=== PATIENT | female | born 1970 | race Caucasian/White ===

== ENCOUNTER → 2017-07-08 | Outpatient (CLI) | payer OTHER ==
[~2017-07-08] MED LIST: BUSP10 PO; HYDPAM25 PO
[2017-07-08 11:57] LABS: BASOPHILS ABSOLUTE AUTO 0.05 K/mm3 (0.00-0.23); BASOPHILS PERCENT AUTO 1 % (0-2); EOSINOPHILS ABSOLUTE AUTO 0.07 K/mm3 (0.00-0.68); EOSINOPHILS PERCENT AUTO 1 % (0-6); Hematocrit 44.3 % (33.0-51.0); Hemoglobin 14.8 g/dL (11.5-16.0); IMMATURE GRAN ABSOLUTE AUTO 0.02 K/mm3 (0.00-0.10); IMMATURE GRAN PERCENT AUTO 0 % (0-1); LYMPHOCYTES ABSOLUTE AUTO 1.49 K/mm3 (0.84-5.20); LYMPHOCYTES PERCENT AUTO 27 % (21-46); MONOCYTES ABSOLUTE AUTO 0.29 K/mm3 (0.16-1.47); MONOCYTES PERCENT AUTO 5 % (4-13); Mean Corpuscular HGB 28.6 pg (26.0-34.0); Mean Corpuscular HGB Conc 33.4 g/dL (31.5-36.5); Mean Corpuscular Volume 86 fL (80-100); Mean Platelet Volume 9.3 fL (9.1-12.4); NEUTROPHILS ABSOLUTE AUTO 3.67 K/mm3 (1.96-9.15); NEUTROPHILS PERCENT AUTO 66 % (41-73); Platelet Count 305 K/mm3 (150-400); RDW Coefficient Variation 13.5 % (11.7-14.2); RDW Standard Deviation 42.4 fL (35.1-46.3); Red Blood Cell Count 5.17 M/mm3 (3.80-5.20); White Blood Cell Count 5.59 K/mm3 (4.00-11.30)
[2017-07-08 12:08] LABS: Alanine Aminotransfer (ALT/SGP 25 U/L (12-78); Albumin/Globulin Ratio 1.3 (0.8-1.8); Alk Phos 88 U/L (40-126); Anion Gap 10 mmol/L (6-16); Aspartate Aminotrans (AST/SGOT 24 U/L (12-37); Bilirubin, Total 0.4 mg/dL (0.1-1.0); Blood Urea Nitrogen 9 mg/dL (8-24); Bun/Creatinine Ratio 11.8 (12.0-20.0); CO2, Blood 28 mmol/L (21-32); Chloride, Blood 104 mmol/L (98-108); Creatinine, Blood 0.76 mg/dL (0.40-1.00); Globulin, Blood 3.2 g/dL (2.2-4.0); Glomerular Filtration Rate >60 (60-); Glucose, Blood 97 mg/dL (70-99); Potassium, Blood 4.6 mmol/L (3.5-5.5); Sodium, Blood 142 mmol/L (136-145); Total Protein, Blood 7.2 g/dL (6.4-8.2); Uric Acid, Blood 5.1 mg/dL (2.6-6.0)
[2017-07-09 10:44] LABS: Antinuclear Antibody Screen Negative (Negative)
[2017-07-09 14:00] LABS: Rheumatoid Factor, Serum Negative (Negative)
== END | disposition home or self-care (01) ==
LOC: LAB SHORT 11:39 → LAB EV 11:39
PROVIDERS: General Practice
DX: M79.602 Pain in left arm (principal)
CPT/HCPCS: 80053; 84550; 85025; 85651; 86038; 86140; 86430

== ENCOUNTER → 2018-11-16 | Outpatient (CLI) | payer BC ==
[~2018-11-16] MED LIST changes: +IBUP800 PO; +Klonopin0.5 MG PO
== END | disposition home or self-care (01) ==
LOC: LAB 17:37 → LAB SHORT 17:37
DX: J02.9 Acute pharyngitis, unspecified (principal)
CPT/HCPCS: 87081

== ENCOUNTER 2018-12-29 05:09 | Emergency (ER) | payer BC ==
[~2018-12-29] VITALS: Ht 160 cm; Wt 72.6 kg
[~2018-12-29 05:09] MED LIST changes: -IBUP800 PO; -Klonopin0.5 MG PO
[2018-12-29] MEDS ORDERED: Klonopin0.5 MG PO (05:24)
[2018-12-29] MEDS ORDERED: IBUP800 PO (06:50)
== END 2018-12-29 07:11 | disposition home or self-care (01) ==
LOC: ER 05:09
DX: S29.011A Strain of muscle and tendon of front wall of thorax, initial encounter (principal); F41.9 Anxiety disorder, unspecified; Z87.891 Personal history of nicotine dependence; Z88.2 Allergy status to sulfonamides; Z88.1 Allergy status to other antibiotic agents; Z79.899 Other long term (current) drug therapy; X50.0XXA Overexertion from strenuous movement or load, initial encounter; Y93.B2 Activity, push-ups, pull-ups, sit-ups; Y92.39 Other specified sports and athletic area as the place of occurrence of the external cause
CPT/HCPCS: 71046; 99283-25

== ENCOUNTER 2019-03-05 20:54 | Emergency (ER) | payer BC ==
[~2019-03-05] VITALS: Ht 160 cm; Wt 74.8 kg
[~2019-03-05 20:54] MED LIST changes: +IBUP800 PO; +Klonopin0.5 MG PO
[2019-03-05] MEDS ORDERED: Augmentin 875-1 EACH PO (23:56)
== END 2019-03-06 00:42 | disposition home or self-care (01) ==
LOC: ER 20:54
DX: S21.052A Open bite of left breast, initial encounter (principal); S81.852A Open bite, left lower leg, initial encounter; F41.9 Anxiety disorder, unspecified; Z23 Encounter for immunization; Z79.899 Other long term (current) drug therapy; W54.0XXA Bitten by dog, initial encounter
CPT/HCPCS: 12002; 76604; 90471; 90714; 96374-59; 99284-25; A9270; J1170

== ENCOUNTER 2019-03-09 05:28 | Emergency (ER) | payer BC ==
[~2019-03-09] VITALS: Ht 160 cm; Wt 76.2 kg
[~2019-03-09 05:28] MED LIST changes: +Augmentin 875-1 EACH PO
[2019-03-09] MEDS ORDERED: HYDR1TAB94 PO (05:44)
== END 2019-03-09 06:45 | disposition home or self-care (01) ==
LOC: ER 05:28
DX: S81.852D Open bite, left lower leg, subsequent encounter (principal); F41.9 Anxiety disorder, unspecified; Z88.2 Allergy status to sulfonamides; Z88.8 Allergy status to other drugs, medicaments and biological substances; Z87.891 Personal history of nicotine dependence
CPT/HCPCS: 73590; 99283-25

== ENCOUNTER 2019-04-06 07:42 | Emergency (ER) | payer BC ==
[~2019-04-06] VITALS: Ht 160 cm; Wt 76.2 kg
[~2019-04-06 07:42] MED LIST changes: +HYDR1TAB94 PO
== END 2019-04-06 09:24 | disposition home or self-care (01) ==
LOC: ER 07:42
DX: M79.89 Other specified soft tissue disorders (principal); F41.9 Anxiety disorder, unspecified; Z88.2 Allergy status to sulfonamides; Z88.1 Allergy status to other antibiotic agents; Z87.891 Personal history of nicotine dependence
CPT/HCPCS: 93971; 99283-25

== ENCOUNTER → 2019-04-15 | Outpatient (CLI) | payer BC | END | disposition home or self-care (01) | LOC: LAB 17:36 → LAB SHORT 17:36 | DX: L03.90 Cellulitis, unspecified (principal) | CPT/HCPCS: 87070; 87075; 87076; 87077; 87186; 87205 ==

== ENCOUNTER 2019-04-27 00:15 | Day surgery (SDC) | payer BC | END 2019-04-27 23:35 | disposition home or self-care (01) | LOC: WOUND 00:15 | DX: L97.822 Non-pressure chronic ulcer of other part of left lower leg with fat layer exposed (principal); S81.852D Open bite, left lower leg, subsequent encounter; S20.02XS Contusion of left breast, sequela; Z88.2 Allergy status to sulfonamides; Z88.1 Allergy status to other antibiotic agents; Z87.891 Personal history of nicotine dependence | CPT/HCPCS: G0463 ==

== ENCOUNTER 2019-05-04 00:09 | Day surgery (SDC) | payer BC | END 2019-05-04 23:02 | disposition home or self-care (01) | LOC: WOUND 00:09 | DX: L97.822 Non-pressure chronic ulcer of other part of left lower leg with fat layer exposed (principal); S81.852D Open bite, left lower leg, subsequent encounter; S20.02XS Contusion of left breast, sequela; F41.0 Panic disorder [episodic paroxysmal anxiety]; F41.1 Generalized anxiety disorder; F43.10 Post-traumatic stress disorder, unspecified; W54.0XXD Bitten by dog, subsequent encounter; Z79.899 Other long term (current) drug therapy ==

== ENCOUNTER 2019-05-12 01:30 | Day surgery (SDC) | payer BC | END 2019-05-12 23:22 | disposition home or self-care (01) | LOC: WOUND 01:30 | DX: L97.822 Non-pressure chronic ulcer of other part of left lower leg with fat layer exposed (principal); S81.852D Open bite, left lower leg, subsequent encounter ==

== ENCOUNTER 2019-05-19 02:52 | Day surgery (SDC) | payer BC | END 2019-05-19 23:09 | disposition home or self-care (01) | LOC: WOUND 02:52 | DX: L97.822 Non-pressure chronic ulcer of other part of left lower leg with fat layer exposed (principal); S81.852D Open bite, left lower leg, subsequent encounter; F43.10 Post-traumatic stress disorder, unspecified; F41.0 Panic disorder [episodic paroxysmal anxiety]; W54.0XXD Bitten by dog, subsequent encounter ==

== ENCOUNTER → 2019-10-27 | Outpatient (CLI) | payer BC | LOC: LAB 07:30 → LAB SHORT 07:30 | DX: J02.9 Acute pharyngitis, unspecified (principal) | CPT/HCPCS: 87081 ==

== ENCOUNTER 2019-11-17 16:57 | Inpatient (IN) | payer BC ==
[~2019-11-17] VITALS: Ht 160 cm; Wt 80.7 kg
[2019-11-17 18:17] LABS: BASOPHILS ABSOLUTE AUTO 0.03 K/mm3 (0.00-0.23); BASOPHILS PERCENT AUTO 0 % (0-2); EOSINOPHILS ABSOLUTE AUTO 0.02 K/mm3 (0.00-0.68); EOSINOPHILS PERCENT AUTO 0 % (0-6); Hematocrit 45.9 % (33.0-51.0); IMMATURE GRAN ABSOLUTE AUTO 0.03 K/mm3 (0.00-0.10); IMMATURE GRAN PERCENT AUTO 0 % (0-1); LYMPHOCYTES ABSOLUTE AUTO 0.91 K/mm3 (0.84-5.20); LYMPHOCYTES PERCENT AUTO 10 % (21-46); MONOCYTES PERCENT AUTO 3 % (4-13); Mean Corpuscular HGB 27.7 pg (26.0-34.0); Mean Corpuscular HGB Conc 32.7 g/dL (31.5-36.5); Mean Corpuscular Volume 85 fL (80-100); Mean Platelet Volume 9.6 fL (9.1-12.4); NEUTROPHILS ABSOLUTE AUTO 7.77 K/mm3 (1.96-9.15); NEUTROPHILS PERCENT AUTO 86 % (41-73); Platelet Count 281 K/mm3 (150-400); RDW Coefficient Variation 12.7 % (11.7-14.2); RDW Standard Deviation 39.5 fL (35.1-46.3); Red Blood Cell Count 5.41 M/mm3 (3.80-5.20); White Blood Cell Count 9.06 K/mm3 (4.00-11.30)
[2019-11-17] MEDS ORDERED: Norco 5-325 Ta1 EACH PO (19:00)
[2019-11-17 19:22] LABS: Alanine Aminotransfer (ALT/SGP 31 U/L (12-78); Albumin, Blood 3.9 g/dL (3.4-5.0); Albumin/Globulin Ratio 1.1 (0.8-1.8); Alk Phos 93 U/L (50-136); Anion Gap 9 mmol/L (6-16); Aspartate Aminotrans (AST/SGOT 22 U/L (12-37); Bilirubin, Total 0.5 mg/dL (0.1-1.0); Blood Urea Nitrogen 9 mg/dL (8-24); Bun/Creatinine Ratio 10.7 (12.0-20.0); CO2, Blood 25 mmol/L (21-32); Calcium, Blood 9.1 mg/dL (8.5-10.1); Chloride, Blood 105 mmol/L (98-108); Creatinine, Blood 0.84 mg/dL (0.40-1.00); Globulin, Blood 3.7 g/dL (2.2-4.0); Glomerular Filtration Rate >60 (60-); Glucose, Blood 132 mg/dL (70-99); Potassium, Blood 3.9 mmol/L (3.5-5.5); Sodium, Blood 139 mmol/L (136-145); Total Protein, Blood 7.6 g/dL (6.4-8.2); Troponin I <0.015 ng/mL (0.000-0.040)
--- NOTE | 2019-11-18 04:10 | NUR ---
SHIFT SUMMARY NEW ADMIT THIS SHIFT. AAOX4. NPO. DISCOMFORT CONTROLLED WITH 1MG IV DILAUDID X1 SINCE ARRIVAL TO FLOOR. PT DENIES NAUSEA/EMESIS. IVF PER ORDERS. PT ORIENTED TO ROOM + CALL LIGHT USE. ABD SOFT/TENDER WITH GENTLE PALPATION. VSS. PT EDUCATED REGARDING TX + QUESTIONS ANSWERED. PT CURRENTLY RESTING WITH CALL LIGHT IN REACH.
--- NOTE | 2019-11-18 16:15 | NUR ---
SHIFT SUMMARY: PATIENT WENT TO SURGERY EARLY THIS MORNING. BEFORE SURGERY SHE WAS TENDER ON THE STOMACH, AND COULD ONLY BE RELIEVED WITH REPOSITIONING TO THE LEFT SIDE. SHE CAME BACK FROM SURGERY A FEW HOURS LATER. POST OP VITALS WERE ALL WNL FOR THE PATIENT. SHE HAS BEEN ALERT AND ORIENTATED THROUGHOUT SHIFT. SHE HAS NOT COMPLAINED OF NAUSEA OR VOMITING. SHE HAS TOLERATED SNACKS AND MEALS. PATIENT HAS VOIDED QUITE A FEW TIMES SINCE SHE REPORTS "LOVING WATER AND COFFEE!". SHE HAS BEEN WALKING FREQUENTLY IN THE ROOM INDEPENDANTLY. PAIN HAS BEEN CONTROLLED WITH 1 KAT. WILL CONTINUE TO MONITOR UNTIL ONCOMING NIGHTSHIFT NURSE COMES TO RECIEVE REPORT.
[2019-11-19 03:56] LABS: Hemoglobin 11.8 g/dL (11.5-16.0); Mean Corpuscular HGB 27.2 pg (26.0-34.0); Mean Corpuscular HGB Conc 31.1 g/dL (31.5-36.5); Mean Corpuscular Volume 88 fL (80-100); Mean Platelet Volume 9.2 fL (9.1-12.4); Platelet Count 228 K/mm3 (150-400); RDW Coefficient Variation 12.9 % (11.7-14.2); RDW Standard Deviation 41.9 fL (35.1-46.3); Red Blood Cell Count 4.34 M/mm3 (3.80-5.20); White Blood Cell Count 8.34 K/mm3 (4.00-11.30)
--- NOTE | 2019-11-19 04:10 | NUR ---
YSHIFT SUMMARY POD#1. AAOX4. DISCOMFORT CONTROLLED WITH 1 ROXICODONE Q4-5H. NO NAUSEA/EMESIS. ABD INCISION WITH STERI STRIPS C/D/I, NO DRAINAGE THIS SHIFT. INDEPENDENT IN ROOM. GOOD PO INTAKE + OUTPUT. PT REPORTING LARGE AMOUNTS OF FLATUS, NO BM POST OP. AWAITING LAB RESULTS THIS AM. PT CURRENTLY SITTING UP IN BED WATCHING TV, ENJOYING COFFEE WITH CALL LIGHT IN REACH.
[2019-11-19 04:22] LABS: Alanine Aminotransfer (ALT/SGP 30 U/L (12-78); Albumin, Blood 2.9 g/dL (3.4-5.0); Albumin/Globulin Ratio 0.9 (0.8-1.8); Alk Phos 70 U/L (50-136); Anion Gap 3 mmol/L (6-16); Aspartate Aminotrans (AST/SGOT 32 U/L (12-37); Bilirubin, Total 0.3 mg/dL (0.1-1.0); Blood Urea Nitrogen 12 mg/dL (8-24); Bun/Creatinine Ratio 13.1 (12.0-20.0); CO2, Blood 30 mmol/L (21-32); Calcium, Blood 8.4 mg/dL (8.5-10.1); Chloride, Blood 107 mmol/L (98-108); Creatinine, Blood 0.92 mg/dL (0.40-1.00); Globulin, Blood 3.2 g/dL (2.2-4.0); Glomerular Filtration Rate >60 (60-); Glucose, Blood 105 mg/dL (70-99); Potassium, Blood 3.9 mmol/L (3.5-5.5); Sodium, Blood 140 mmol/L (136-145); Total Protein, Blood 6.1 g/dL (6.4-8.2)
[2019-11-19] MEDS ORDERED: OXAYDO5 MG PO (10:29)
[2019-11-19] MEDS ORDERED: ACET325 PO (10:32)
--- NOTE | 2019-11-19 10:45 | NUR ---
DISCHARGE PT EDUCATED ON AND RECEIVED PRINTED DISCHARGE INSTRUCTIONS AND VERBALIZED AN UNDERSTANDING. HARD RX FOR ROXICODONE GIVEN TO PT. IV DC'D. PT GATHERED ALL PERSONAL BELONGINGS AND DISCHARGED HOME.
--- NOTE | 2019-11-20 09:37 | NUR ---
11/20/19 0937 Papst,Peter Santana VERIFICATION: ADDITION OF ITEMS
== END 2019-11-19 10:45 | disposition home or self-care (01) | DRG 419 ==
LOC: ER 16:57 → SURS 20:49
PROVIDERS: Physician Assistant; ADMIT Surgery
PROC: 0FT44ZZ Resection of Gallbladder, Percutaneous Endoscopic Approach (ICD-10-PCS; principal; 2019-11-18 08:30)
DX: K80.01 Calculus of gallbladder with acute cholecystitis with obstruction (principal); F41.9 Anxiety disorder, unspecified; Z87.891 Personal history of nicotine dependence
CPT/HCPCS: 36415; 76705; 80053; 83690; 84484; 85025; 85027; 93005; 93010; 96374; 96375; 99285-25; J0690; J1100; J1170; J1885; J2250; J2405; J2704; J3010; J7030; U0002

== ENCOUNTER → 2020-03-10 | Outpatient (CLI) | payer BC ==
[~2020-03-10] MED LIST changes: +ACET325 PO; +Norco 5-325 Ta1 EACH PO; +OXAYDO5 MG PO
== END ==
LOC: LAB 12:30 → LAB SHORT 12:30
DX: R30.0 Dysuria (principal)
CPT/HCPCS: 87086

== ENCOUNTER → 2020-09-29 | Outpatient (CLI) | payer BC | END | disposition home or self-care (01) | LOC: LAB 13:00 → LAB SHORT 13:00 | DX: J02.9 Acute pharyngitis, unspecified (principal) | CPT/HCPCS: 87081 ==

== ENCOUNTER → 2021-04-24 | Outpatient (CLI) | payer BC | LOC: LAB 14:09 → LAB SHORT 14:09 | DX: J02.9 Acute pharyngitis, unspecified (principal) | CPT/HCPCS: 87081 ==